=== PATIENT | female | born 2000 | race Caucasian/White ===

== ENCOUNTER 2023-12-31 12:07 | Emergency (ER) | payer OTHER ==
[~2023-12-31] VITALS: Ht 147.3 cm; Wt 53.2 kg
[2023-12-31] MEDS ORDERED: Acetaminophen 500 MG TAB PO ONE (13:15)
[2023-12-31] MEDS ORDERED: Ondansetron 4 MG/2 ML VIAL IV PRN (13:15)
[2023-12-31] MEDS ORDERED: Morphine 4 MG/ML VIAL IV ONE (13:15)
[2023-12-31 13:31] LABS: BASO % 0.6 % (0.0-2.0); EOS % 0.6 % (0.0-4.0); GRAN # 5.5 K/mm3 (1.4-6.5); GRAN % 84.3 % (42.2-75.2); LYMPH # 0.4 K/mm3 (1.2-3.4); LYMPH % 6.3 % (20.0-51.0); MEAN CELL VOLUME 97 fl (80.0-100.0); MEAN CORPUSCULAR HEMOGLOBIN 33 pg (27-31); MEAN CORPUSCULAR HGB CONC 34 g/dl (33.0-37.0); MEAN PLATELET VOLUME 9.5 fl (7.4-10.4); MONO # 0.5 K/mm3 (0.1-0.6); MONO % 7.7 % (1.7-9.3); PLATELET COUNT 243 K/mm3 (130-400); RED BLOOD COUNT 3.36 M/mm3 (4.10-5.30); REDCELL DISTRIBUTION WIDTH-CV 14.2 % (11.5-14.5)
[2023-12-31 13:32] LABS: HEMATOCRIT 32.7 % (37.0-47.0)
[2023-12-31 13:48] LABS: ALBUMIN 4.1 g/dL (3.5-5.0); BILIRUBIN,TOTAL 0.3 mg/dL (0.2-1.2); CALCIUM 9.9 mg/dL (8.4-10.2); CREATININE, serum 4.64 mg/dL (0.57-1.11); POTASSIUM 4.7 mEq/L (3.5-4.5); TOTAL PROTEIN 6.7 g/dl (6.2-8.1)
[2023-12-31 14:54] VITALS: BP 103/66; PULSE 91; TEMP 99.1
== END 2023-12-31 14:54 | disposition home or self-care (01) ==
LOC: COL.ER 12:07
PROVIDERS: Personal Emergency Response Attendant
DX: N19 Unspecified kidney failure (principal)
CPT/HCPCS: J2270; J2405

== ENCOUNTER 2024-04-10 06:55 | Day surgery (SDC) | payer OTHER ==
[~2024-04-10] VITALS: Ht 149.9 cm; Wt 55.0 kg
[2024-04-10] MEDS ORDERED: LR 1,000 ML IV SCH (07:45)
[2024-04-10] MEDS ORDERED: RENVELA800 MG PO (08:07)
[2024-04-10] MEDS ORDERED: LASIX 40MG TABL40 MG PO (08:08)
[2024-04-10] MEDS ORDERED: MEPRON750 MG/5 M PO (08:08)
[2024-04-10] MEDS ORDERED: PEPCID40 MG PO (08:09)
[2024-04-10] MEDS ORDERED: MILLIPRED5 MG PO (08:09)
[2024-04-10] MEDS ORDERED: MICARDIS20 MG PO (08:10)
[2024-04-10] MEDS ORDERED: SODIUM CHLORIDE NS ONE (08:30)
[2024-04-10] MEDS ORDERED: NS 1,000 ML IV SCH (08:30)
[2024-04-10 08:31] VITALS: BP 121/66; PULSE 70; TEMP 97.8
[2024-04-10] MEDS ORDERED: Lidocaine PF 2% (20 MG/ML) 5 ML VIAL ONE (08:32)
[2024-04-10] MEDS ORDERED: Rocuronium 50 MG/5 ML Multi-Dose VIAL ONE (08:32)
[2024-04-10] MEDS ORDERED: fentaNYL 50 MCG/ML 2 ML VIAL ONE (08:32)
[2024-04-10 08:36] LABS: CALCIUM 9.7 mg/dL (8.4-10.2); CREATININE, serum 5.65 mg/dL (0.57-1.11); POTASSIUM 4.3 mEq/L (3.5-4.5)
[2024-04-10] MEDS ORDERED: Topical Skin Adhesive 1 EACH (1 ML) TOP ONE (09:18)
[2024-04-10] MEDS ORDERED: NORCO 325 MG-51 TAB PO (10:03)
[2024-04-10] MEDS ORDERED: Acetaminophen 325 MG TAB PO PRN (10:15)
[2024-04-10] MEDS ORDERED: hydrALAZINE 20 MG/ML 1 ML VIAL IV PRN (10:30)
[2024-04-10] MEDS ORDERED: fentaNYL 50 MCG/ML 1 ML SYRINGE/VIAL [PACU/SDC ONLY] IV PRN (10:30)
[2024-04-10] MEDS ORDERED: HYDROmorphone 1 MG/1 ML SYRINGE [PACU/SDC ONLY] IV PRN ×2 (10:30)
[2024-04-10] MEDS ORDERED: fentaNYL 50 MCG/ML 2 ML VIAL IV PRN (10:30)
[2024-04-10] MEDS ORDERED: Ondansetron 4 MG/2 ML VIAL IV PRN (10:30)
[2024-04-10 11:00] VITALS: BP 138/82; PULSE 78; TEMP 98
[2024-04-10 11:15] VITALS: BP 136/75; PULSE 78
[2024-04-10 11:24] VITALS: TEMP 97.4
[2024-04-10 11:30] VITALS: BP 123/65; PULSE 85
--- NOTE | 2024-04-10 11:42 | NUR ---
Pt to [facility] from PACU, via cart at 1100. Bedside handoff received from TERESA Hill. VSS. Muffin, hot tea and warm blanket given. Dressings to abdomen are CDI. Dialysis catheter noted to right chest, dressing CDI. IV INT'd at time of transfer. 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 Pain medication given, see EMAR. Discharge instructions and education reviewed at length with patient and mother. Questions answered. Call light within reach, cart in low position.
[2024-04-10 11:49] VITALS: BP 121/75; PULSE 89
--- NOTE | 2024-04-10 11:49 | NUR ---
Pt getting dressed at this time. Mother at bedside assisting patient.
--- NOTE | 2024-04-10 12:10 | NUR ---
Patient ready for discharge at 1200. INT removed. Dressings remain CDI, denies complaints. Pt down to parents car, via w/c at 1205. Belongings with patient.
== END 2024-04-10 12:05 | disposition home or self-care (01) ==
LOC: SDCO 06:55
PROVIDERS: Nurse Anesthetist, Certified Registered; Surgery
DX: N18.6 End stage renal disease (principal); Z99.2 Dependence on renal dialysis
CPT/HCPCS: C1750; J1171; J2704; J3010; J7030

== ENCOUNTER 2024-04-11 10:06 | Emergency (ER) | payer OTHER ==
[~2024-04-11] VITALS: Ht 149.9 cm; Wt 54.5 kg
[~2024-04-11 10:06] MED LIST: LASIX 40MG TABL40 MG PO; MEPRON750 MG/5 M PO; MICARDIS20 MG PO; MILLIPRED5 MG PO; NORCO 325 MG-51 TAB PO; PEPCID40 MG PO; RENVELA800 MG PO
[2024-04-11 10:15] VITALS: TEMP 97.8
[2024-04-11 10:26] LABS: COLLECTION METHOD CLEAN CATCH
[2024-04-11 10:43] LABS: PH 5.5 (5.0-8.5); URINE APPEARANCE CLEAR (CLEAR/HAZY); URINE BLOOD 1+ (NEGATIVE); URINE COLOR YELLOW (YELLOW); URINE GLUCOSE NEGATIVE (NEGATIVE); URINE KETONE TRACE (NEGATIVE); URINE NITRATE NEGATIVE (NEGATIVE); URINE PROTEIN(semi-quant) 4+ (NEGATIVE); URINE UROBILINOGEN 0.2 E.U/dL (0.2-1.0)
[2024-04-11] MEDS ORDERED: fentaNYL 50 MCG/ML 2 ML VIAL IV ONE (10:45)
[2024-04-11] MEDS ORDERED: Ondansetron 4 MG/2 ML VIAL IV ONE (10:45)
[2024-04-11 11:01] LABS: URINE BACTERIA MODERATE /hpf (NONE SEEN)
[2024-04-11 11:04] LABS: BASO % 0.3 % (0.0-2.0); EOS # 0.1 K/mm3 (0.0-0.7); EOS % 0.8 % (0.0-4.0); GRAN # 6.2 K/mm3 (1.4-6.5); GRAN % 66.6 % (42.2-75.2); HEMOGLOBIN 11.2 g/dl (12.5-16.0); LYMPH # 2.2 K/mm3 (1.2-3.4); LYMPH % 23.9 % (20.0-51.0); MEAN CELL VOLUME 91 fl (80.0-100.0); MEAN CORPUSCULAR HEMOGLOBIN 32 pg (27-31); MEAN CORPUSCULAR HGB CONC 35 g/dl (33.0-37.0); MEAN PLATELET VOLUME 9.6 fl (7.4-10.4); MONO # 0.8 K/mm3 (0.1-0.6); PLATELET COUNT 253 K/mm3 (130-400); RED BLOOD COUNT 3.56 M/mm3 (4.10-5.30); REDCELL DISTRIBUTION WIDTH-CV 11.6 % (11.5-14.5)
[2024-04-11 11:06] LABS: HEMATOCRIT 32.5 % (37.0-47.0)
[2024-04-11 11:17] LABS: CALCIUM 9.8 mg/dL (8.4-10.2); CREATININE, serum 3.04 mg/dL (0.57-1.11); POTASSIUM 4.1 mEq/L (3.5-4.5)
[2024-04-11 14:35] VITALS: BP 122/81; PULSE 82
== END 2024-04-11 14:46 | disposition home or self-care (01) ==
LOC: COL.ER 10:06
PROVIDERS: Emergency Medicine
DX: N18.6 End stage renal disease (principal); Z99.2 Dependence on renal dialysis
CPT/HCPCS: J2405; J3010